=== PATIENT | female | born 1965 | race Caucasian/White ===

== ENCOUNTER → 2016-09-09 | Outpatient (REF) | payer OTHER ==
[2016-09-09 12:12] LABS: ALBUMIN 3.7 GM/DL (3.2-5.2); ALKALINE PHOSPHATASE 79 U/L (45-117); ALT/SGPT 39 U/L (12-78); ANION GAP 6 MEQ/L (8-16); AST/SGOT 27 U/L (15-37); BILIRUBIN,TOTAL 0.7 MG/DL (0.2-1.0); BLOOD UREA NITROGEN 14 MG/DL (7-18); CALCIUM LEVEL 8.9 MG/DL (8.5-10.1); CARBON DIOXIDE LEVEL 30 MEQ/L (21-32); CHLORIDE LEVEL 106 MEQ/L (98-107); CHOLESTEROL LEVEL 212 MG/DL (<200); CREATININE FOR GFR 0.72 MG/DL (0.55-1.02); GLOMERULAR FILTRATION RATE > 60.0 (>51); GLUCOSE, FASTING 102 MG/DL (70-105); POTASSIUM SERUM 4.3 MEQ/L (3.5-5.1); SODIUM LEVEL 142 MEQ/L (136-145); TOTAL PROTEIN 7.4 GM/DL (6.4-8.2); TRIGLYCERIDES LEVEL 65 MG/DL (<150)
[2016-09-09 12:31] LABS: MEAN CORPUSCULAR HEMOGLOBIN 27.8 pg (27.0-33.0); MEAN CORPUSCULAR HGB CONC 32.9 g/dl (32.0-36.5); MEAN CORPUSCULAR VOLUME 84.5 fl (80.0-96.0); RED CELL DISTRIBUTION WIDTH 13.7 % (11.5-14.5); WHITE BLOOD COUNT 8.1 K/mm3 (4.0-10.0)
== END ==
LOC: M SFHCLERA 08:07
PROVIDERS: ATTEND Physician Assistant
DX: I10 Essential (primary) hypertension (principal); Z13.220 Encounter for screening for lipoid disorders

== ENCOUNTER → 2017-11-25 | Outpatient (CLI) | payer OTHER | LOC: M LRY 14:15 | DX: R06.00 Dyspnea, unspecified (principal) | CPT/HCPCS: 71046 ==

== ENCOUNTER → 2018-03-28 | Outpatient (REF) | payer OTHER | LOC: M SFHCCLAY 16:18 | DX: I10 Essential (primary) hypertension (principal) ==

== ENCOUNTER → 2018-06-01 | Outpatient (REF) | payer OTHER ==
[2018-06-01 16:42] LABS: BLOOD UREA NITROGEN 14 MG/DL (7-18); CALCIUM LEVEL 8.8 MG/DL (8.5-10.1); CARBON DIOXIDE LEVEL 33 MEQ/L (21-32); CHLORIDE LEVEL 99 MEQ/L (98-107); CREATININE FOR GFR 0.82 MG/DL (0.55-1.30); GLOMERULAR FILTRATION RATE > 60.0 (>51); GLUCOSE, FASTING 143 MG/DL (70-100); POTASSIUM SERUM 3.3 MEQ/L (3.5-5.1); SODIUM LEVEL 139 MEQ/L (136-145)
== END ==
LOC: M SFHCCLAY 11:18
PROVIDERS: ATTEND Family Medicine
DX: I10 Essential (primary) hypertension (principal)

== ENCOUNTER → 2018-06-21 | Outpatient (REF) | payer OTHER ==
[2018-06-22 11:22] LABS: BLOOD UREA NITROGEN 19 MG/DL (7-18); CALCIUM LEVEL 9.2 MG/DL (8.5-10.1); CARBON DIOXIDE LEVEL 30 MEQ/L (21-32); CHLORIDE LEVEL 97 MEQ/L (98-107); CREATININE FOR GFR 0.86 MG/DL (0.55-1.30); GLOMERULAR FILTRATION RATE > 60.0 (>51); GLUCOSE, FASTING 170 MG/DL (70-100); POTASSIUM SERUM 3.3 MEQ/L (3.5-5.1); SODIUM LEVEL 138 MEQ/L (136-145)
== END ==
LOC: M SFHCCLAY 13:50
PROVIDERS: ATTEND Family Medicine
DX: E87.6 Hypokalemia (principal)

== ENCOUNTER → 2018-07-11 | Outpatient (REF) | payer OTHER ==
[2018-07-11 18:39] LABS: BLOOD UREA NITROGEN 18 MG/DL (7-18); CALCIUM LEVEL 9.2 MG/DL (8.5-10.1); CARBON DIOXIDE LEVEL 31 MEQ/L (21-32); CHLORIDE LEVEL 100 MEQ/L (98-107); CREATININE FOR GFR 0.96 MG/DL (0.55-1.30); GLOMERULAR FILTRATION RATE > 60.0 (>51); GLUCOSE, FASTING 147 MG/DL (70-100); POTASSIUM SERUM 3.2 MEQ/L (3.5-5.1); SODIUM LEVEL 139 MEQ/L (136-145)
== END ==
LOC: M SFHCCLAY 09:40
PROVIDERS: ATTEND Family Medicine
DX: I10 Essential (primary) hypertension (principal); E87.6 Hypokalemia

== ENCOUNTER → 2018-08-23 | Outpatient (REF) | payer OTHER ==
[2018-08-24 12:16] LABS: BLOOD UREA NITROGEN 14 MG/DL (7-18); CALCIUM LEVEL 8.8 MG/DL (8.5-10.1); CARBON DIOXIDE LEVEL 26 MEQ/L (21-32); CHLORIDE LEVEL 104 MEQ/L (98-107); CREATININE FOR GFR 0.72 MG/DL (0.55-1.30); GLOMERULAR FILTRATION RATE > 60.0 (>51); GLUCOSE, FASTING 113 MG/DL (70-100); MAGNESIUM LEVEL 1.9 MG/DL (1.8-2.4); POTASSIUM SERUM 3.9 MEQ/L (3.5-5.1); SODIUM LEVEL 138 MEQ/L (136-145)
== END ==
LOC: M SFHCCLAY 14:04
PROVIDERS: ATTEND Family Medicine
DX: I10 Essential (primary) hypertension (principal); R25.2 Cramp and spasm

== ENCOUNTER → 2018-11-21 | Outpatient (CLI) | payer BC ==
--- NOTE | 2018-11-21 15:26 | REP ---
CHEST, TWO VIEWS: Two views of the chest performed and compared to a prior study of 11/25/2017. There is dense pneumonic infiltrate in the right middle lobe. The left lung is clear. The heart is normal in size. Mediastinal silhouette is unremarkable. Visualized osseous structures are unremarkable. IMPRESSION: Dense pneumonic infiltrate right middle lobe. Recommend followup to resolution.
== END ==
LOC: M CLY 14:42
PROVIDERS: ATTEND Family Medicine
DX: R91.8 Other nonspecific abnormal finding of lung field (principal)

== ENCOUNTER → 2018-12-11 | Outpatient (CLI) | payer BC, OTHER ==
[~2018-12-11] MED LIST: METHACHOLINE KIT (J7674) INH ONE
--- NOTE | 2018-12-11 11:26 | PFTRPT ---
Height: 68.00 Inches Weight: 198.00 Lbs BSA: 2.04 Diagnosis: R05 DATE OF PROCEDURE: 12/11/2018 ORDERED BY: Rosa Marina INTERPRETATION: Study of excellent technical quality. Under protocol, methacholine was administered. At a dose of 0.25 mg or 1.375 CDUs, a 28% decline in the FEV1 was noted. PC of 0.13 is significant. Flow rates did return to baseline post bronchodilator administration. IMPRESSION: Positive methacholine challenge study. MTDD
== END ==
LOC: M CARPUL 10:32
PROVIDERS: ATTEND Nurse Practitioner Family
DX: R05 Cough (principal); R06.00 Dyspnea, unspecified
CPT/HCPCS: 94070; J7674

== ENCOUNTER → 2019-01-03 | Outpatient (REF) ==
[2019-01-03 14:16] LABS: BASO # 0.2 10^3/uL (0.0-0.2); BASO % 1.7 % (0.0-1.0); HEMATOCRIT 46.9 % (36.0-47.0); HEMOGLOBIN 15.2 g/dl (12.0-15.5); LYMPH # 3.7 10^3/uL (1.5-4.5); LYMPH % 39.7 % (24.0-44.0); MEAN CORPUSCULAR HEMOGLOBIN 27.3 pg (27.0-33.0); MEAN CORPUSCULAR HGB CONC 32.4 g/dl (32.0-36.5); MEAN CORPUSCULAR VOLUME 84.4 fl (80.0-96.0); MONO # 0.6 10^3/uL (0.0-0.8); MONO % 6.6 % (0.0-5.0); NEUTROPHILS # 4.9 10^3/uL (1.8-7.7); NEUTROPHILS % 51.8 % (36.0-66.0); PLATELET COUNT, AUTOMATED 305 10^3/uL (150-450); RED BLOOD COUNT 5.56 10^6/uL (4.00-5.40); WHITE BLOOD COUNT 9.4 10^3/uL (4.0-10.0)
== END ==
LOC: M LABSMT 13:19
PROVIDERS: ATTEND Allergy & Immunology Allergy
DX: J45.40 Moderate persistent asthma, uncomplicated (principal)

== ENCOUNTER → 2019-01-18 | Outpatient (CLI) | payer BC, OTHER ==
--- NOTE | 2019-01-19 09:38 | REP ---
CT of the maxillofacial bones without contrast: Clinical indication: Polyp of nasal cavity. Comparison: None. Technique: CT of maxillofacial bones was performed without contrast. Bone reformatted images were obtained in the axial coronal planes. Findings: There is complete opacification of the right and left frontal sinuses, right and left frontoethmoid recesses, right and left anterior and posterior ethmoid air cells with bowing of the lateral burrows of the ethmoid air cells. There is near complete opacification of the right sphenoid sinus with central aeration. There is mucosal thickening of the left sphenoid sinus. The sphenoid septum inserts centrally within the midline. The cribriform plate is intact. The (cut off) canals are clear. There is near complete opacification of the right maxillary sinus with mucosal thickening throughout the right ostiomeatal unit. There is partial opacification of the left maxillary sinus with mucosal thickening involving the ostiomeatal unit on the left. There is rightward deviation of the nasal septum. The mastoid air cells are clear. The sphenoid ethmoid recesses are opacified. The imaged portion of the head is unremarkable. The orbits are intact. Impression: 1. Complete opacification of the right frontal ethmoid sinuses with bowing of the lateral burrows of the ethmoid air cells. Near complete opacification of the sphenoid and partial opacification of the maxillary sinuses with mucosal thickening of the ostiomeatal units bilaterally. 2. Rightward deviation of the nasal septum. Unreviewed
== END ==
LOC: M RAD 16:13
PROVIDERS: ATTEND Otolaryngology
DX: J33.0 Polyp of nasal cavity (principal); J34.2 Deviated nasal septum; J32.2 Chronic ethmoidal sinusitis; J32.3 Chronic sphenoidal sinusitis; J32.0 Chronic maxillary sinusitis

== ENCOUNTER → 2019-02-02 | Outpatient (CLI) | payer BC, OTHER ==
[~2019-02-02] MED LIST changes: +AMLO5TAB6 PO; +CETI10CA13 PO; +FLUTISP; -METHACHOLINE KIT (J7674) INH ONE; +SYMB16INH INH
--- NOTE | 2019-02-02 10:55 | REP ---
Right wrist four views: Mineralization and joint spaces are normal. There is no fracture or dislocation. There is soft tissue edema over the dorsum. There are no calcifications or foreign bodies. Impression: Soft tissue edema. No fracture. Electronically Signed by Danie Dowell MD 02/02/2019 10:47 A
== END ==
LOC: M LRY 10:19
PROVIDERS: ATTEND Physician Assistant
DX: M25.431 Effusion, right wrist (principal)

== ENCOUNTER → 2019-02-02 | Outpatient (REF) | payer OTHER ==
[2019-02-02 16:41] LABS: RHEUMATOID FACTOR QUANT < 10.0 IU/ML (<15.0); URIC ACID 3.7 MG/DL (2.6-6.0)
[2019-02-02 16:45] LABS: BASO # 0.1 10^3/uL (0.0-0.2); HEMOGLOBIN 14.7 g/dl (12.0-15.5); LYMPH # 2.2 10^3/uL (1.5-4.5); LYMPH % 23.4 % (24.0-44.0); MEAN CORPUSCULAR HEMOGLOBIN 27.6 pg (27.0-33.0); MEAN CORPUSCULAR VOLUME 86.5 fl (80.0-96.0); MONO # 0.6 10^3/uL (0.0-0.8); MONO % 6.4 % (0.0-5.0); NEUTROPHILS # 6.6 10^3/uL (1.8-7.7); PLATELET COUNT, AUTOMATED 292 10^3/uL (150-450); RED BLOOD COUNT 5.32 10^6/uL (4.00-5.40); WHITE BLOOD COUNT 9.6 10^3/uL (4.0-10.0)
[2019-02-02 18:42] LABS: ERYTHROCYTE SEDIMENTATION RATE 10 mm/hr (0-30)
[2019-02-07 00:06] LABS: ANTINUCLEAR ANTIBODIES DIRECT Negative (Negative); Lyme Disease IgG/IgM Antibodie <0.91 ISR (0.00-0.90); Lyme Disease IgM Ab Quantitati <0.80 index (0.00-0.79)
== END ==
LOC: M SFHCLERA 10:17
PROVIDERS: ATTEND Physician Assistant
DX: M25.531 Pain in right wrist (principal)

== ENCOUNTER 2019-03-02 12:08 | Day surgery (SDC) | payer BC, OTHER ==
[~2019-03-02] VITALS: Ht 172.7 cm; Wt 89.8 kg
[~2019-03-02 12:08] MED LIST changes: +NS 1,000 ML IV ONE
[2019-03-02] MEDS ORDERED: PROPOFOL 500 MG/50 ML VIAL As Ordered ONE (13:14)
[2019-03-02] MEDS ORDERED: fentaNYL 100 MCG/2 ML INJECTION (J3010) As Ordered ONE (13:14)
[2019-03-02] MEDS ORDERED: LIDOCAINE 2% INJ 100 MG/5 ML SDV (FOR ANES.) As Ordered ONE (13:14)
--- NOTE | 2019-03-02 13:20 | ROOR ---
Patient Name: Abeba Nieves Procedure Date: 03/02/2019 1:00 PM Date of : 1965 Age: 54 Room: [facility] Gender: Female Note Status: Finalized Procedure: Upper GI endoscopy Indications: Suspected esophageal reflux, Chronic cough Providers: Elroy LEAL MD Referring MD: Cathleen PATRICK DO Requesting Provider: Medicines: Monitored Anesthesia Care Complications: No immediate complications. Procedure: Pre-Anesthesia Assessment: - The heart rate, respiratory rate, oxygen saturations, blood pressure, adequacy of pulmonary ventilation, and response to care were monitored throughout the procedure. The Endoscope was introduced through the mouth, and advanced to the second part of duodenum. The upper GI endoscopy was accomplished without difficulty. The patient tolerated the procedure well. Findings: The esophagus was normal. The stomach was normal. The examined duodenum was normal. The AMADOR capsule with delivery system was introduced through the mouth and advanced into the esophagus, such that the AMADOR pH capsule was positioned 36 cm from the incisors, which was 6 cm proximal to the GE junction. The AMADOR pH capsule was then deployed and attached to the esophageal mucosa. The delivery system was then withdrawn. Endoscopy was utilized for probe placement and diagnostic evaluation. Impression: - Normal esophagus. - Normal stomach. - Normal examined duodenum. - The AMADOR pH capsule was deployed. - No specimens collected. Recommendation: - Amador pH testing: OFF PPI meds. - Telephone my office for study results in 2 weeks. Elroy Leal MD Elroy LEAL MD 03/02/2019 1:20:17 PM Electronically signed by Elroy LEAL MD Number of Addenda: 0 Note Initiated On: 03/02/2019 1:00 PM Estimated Blood Loss: Estimated blood loss: none.
[2019-03-02 13:40] VITALS: BP 129/94
== END 2019-03-02 13:55 | disposition home or self-care (01) ==
LOC: M OPP 12:08
PROVIDERS: ATTEND Internal Medicine Gastroenterology
DX: R05 Cough (principal); J45.909 Unspecified asthma, uncomplicated; Z88.0 Allergy status to penicillin; Z88.6 Allergy status to analgesic agent
CPT/HCPCS: 43235; 91035; J3010

== ENCOUNTER → 2019-03-05 | Outpatient (REF) | payer OTHER ==
[~2019-03-05] MED LIST changes: -NS 1,000 ML IV ONE
[2019-03-05 16:57] LABS: ALBUMIN 3.8 GM/DL (3.2-5.2); ALT/SGPT 24 U/L (12-78); BILIRUBIN,TOTAL 0.8 MG/DL (0.2-1.0); BLOOD UREA NITROGEN 11 MG/DL (7-18); CALCIUM LEVEL 9.2 MG/DL (8.5-10.1); CARBON DIOXIDE LEVEL 29 MEQ/L (21-32); CHLORIDE LEVEL 105 MEQ/L (98-107); CHOLESTEROL LEVEL 197 MG/DL (<200); CHOLESTEROL RISK RATIO 2.855 (<5); CREATININE FOR GFR 0.74 MG/DL (0.55-1.30); GLOMERULAR FILTRATION RATE > 60.0 (>51); GLUCOSE, FASTING 99 MG/DL (70-100); HDL CHOLESTEROL 69 MG/DL (>40); LDL CHOLESTEROL 111 MG/DL (<100); NON-HDL-C 128 MG/DL; SODIUM LEVEL 140 MEQ/L (136-145); TOTAL PROTEIN 7.5 GM/DL (6.4-8.2); TRIGLYCERIDES LEVEL 87 MG/DL (<150)
== END ==
LOC: M SFHCCLAY 09:48
PROVIDERS: ATTEND Family Medicine
DX: Z00.00 Encounter for general adult medical examination without abnormal findings (principal); Z83.3 Family history of diabetes mellitus; Z13.1 Encounter for screening for diabetes mellitus; Z13.220 Encounter for screening for lipoid disorders

== ENCOUNTER → 2019-05-07 | Outpatient (CLI) | payer OTHER ==
--- NOTE | 2019-05-07 12:11 | REP ---
Clinical: Cough and shortness of breath . Comparison: 11/21/2018 . Technique: PA and lateral. Findings: The mediastinum and cardiac silhouette are normal. The lung simon are clear and without acute consolidation, effusion, or pneumothorax. The skeletal structures are intact and normal. Impression: 1. No acute cardiopulmonary process. Electronically Signed by Andres Gonzalez MD 05/07/2019 12:02 P
== END ==
LOC: M CLY 11:28 → M LRY 11:28
PROVIDERS: ATTEND Family Medicine
DX: R05 Cough (principal); R06.02 Shortness of breath

== ENCOUNTER → 2019-06-15 | Outpatient (CLI) | payer BC, OTHER ==
--- NOTE | 2019-06-15 11:49 | REP ---
CHEST, TWO VIEWS: There is no evidence of acute infiltrate. No pleural effusion is seen. The heart is normal in size. The mediastinal silhouette is unremarkable. The visualized osseous structures are intact. There are mild degenerative changes of the spine. IMPRESSION: No acute pulmonary disease. Electronically Signed by Danie Pat MD 06/16/2019 03:15 P
== END ==
LOC: M LRY 10:25
PROVIDERS: ATTEND Nurse Practitioner Family
DX: J45.41 Moderate persistent asthma with (acute) exacerbation (principal)

== ENCOUNTER → 2019-07-09 | Outpatient (REF) | payer OTHER ==
[2019-07-10 12:46] LABS: BASO # 0.1 10^3/uL (0.0-0.2); BASO % 1.9 % (0.0-1.0); EOS % 0.3 % (0.0-3.0); HEMATOCRIT 43.6 % (36.0-47.0); HEMOGLOBIN 13.8 g/dl (12.0-15.5); LYMPH # 2.2 10^3/uL (1.5-5.0); LYMPH % 32.6 % (24.0-44.0); MEAN CORPUSCULAR HEMOGLOBIN 26.7 pg (27.0-33.0); MEAN CORPUSCULAR HGB CONC 31.7 g/dl (32.0-36.5); MEAN CORPUSCULAR VOLUME 84.5 fl (80.0-96.0); MONO # 0.8 10^3/uL (0.0-0.8); MONO % 11.8 % (0.0-5.0); NEUTROPHILS # 3.7 10^3/uL (1.5-8.5); NEUTROPHILS % 53.1 % (36.0-66.0); PLATELET COUNT, AUTOMATED 442 10^3/uL (150-450); RED BLOOD COUNT 5.16 10^6/uL (4.00-5.40); WHITE BLOOD COUNT 6.9 10^3/uL (4.0-10.0)
== END ==
LOC: M SFHCCLAY 15:50
PROVIDERS: ATTEND Family Medicine
DX: R53.83 Other fatigue (principal)

== ENCOUNTER → 2020-01-24 | Outpatient (CLI) | payer BC, OTHER ==
[~2020-01-24] MED LIST changes: +ALLE180T33 PO; +AMLO1TAB24 PO; -AMLO5TAB6 PO; +CHLO25TA PO; +CLIN150C14 PO; +DULE200A INH; +PRED5TA; +PROAAER10 INH; +SING10TA32 PO
--- NOTE | 2020-01-24 15:46 | REPVR ---
PROCEDURE INFORMATION: Exam: CT Maxillofacial Without Contrast, Sinus Exam date and time: 01/24/2020 3:21 PM Age: 54 years old Clinical indication: Other: Chronic pansinusitis, polyp of nasal cavity; Additional info: J33.0 polyp of nasal cavity j32.4 chronic pansinus TECHNIQUE: Imaging protocol: CT Maxillofacial without contrast. Focus on the sinuses. Radiation optimization: All CT scans at this facility use at least one of these dose optimization techniques: automated exposure control; mA and/or kV adjustment per patient size (includes targeted exams where dose is matched to clinical indication); or iterative reconstruction. COMPARISON: CT Maxilofacial w/out contrast 01/18/2019 4:31 PM FINDINGS: Frontal sinuses: There is mild mucosal thickening in bilateral frontal sinuses, significantly improved since the previous study. Ethmoid air cells: There is moderate mucosal thickening in bilateral ethmoid sinuses, significantly improved since the previous study. Sphenoid sinuses: There is mild mucosal thickening in bilateral sphenoid sinuses, improved since the previous study. Maxillary sinuses: There is moderate mucosal thickening in the right maxillary sinus, unchanged since the previous study. There is moderate mucosal thickening in the left maxillary sinus improved since the previous study. There is a polypoid mucosal thickening along the medial wall of the left maxillary sinus. Orbits: Examination reveals bilateral globes to be normal in size and morphology. The optic nerves are normal in thickness and symmetric bilaterally. The extraocular muscles are normal in thickness and signal intensity. The retroconal fat has a normal appearance. The lacrimal glands appear normal bilaterally. Mastoid air cells: The visualized mastoid air cells are clear. Nasal cavity/Septum: There is mild deviation of the nasal septum towards the right. There is marked mucosal obstruction of bilateral ostiomeatal complex. Dental: Metallic beam hardening artifact from dental hardware limits evaluation in this region. Brain: The visualized brain parenchyma is unremarkable. Soft tissues: Unremarkable. Bones/joints: The bony orbital burrows are intact. No fractures are identified. The visualized osseous structures are unremarkable. No acute fracture or dislocation is seen. IMPRESSION: 1. There is mild mucosal thickening in bilateral frontal sinuses, significantly improved since the previous study. 2. There is moderate mucosal thickening in bilateral ethmoid sinuses, significantly improved since the previous study. 3. There is mild mucosal thickening in bilateral sphenoid sinuses, improved since the previous study. 4. There is moderate mucosal thickening in the right maxillary sinus, unchanged since the previous study. There is moderate mucosal thickening in the left maxillary sinus improved since the previous study. There is a polypoid mucosal thickening along the medial wall of the left maxillary sinus. 5. There is mild deviation of the nasal septum towards the right. There is marked mucosal obstruction of bilateral ostiomeatal complex. Electronically signed by: Melecio Townsend On 01/24/2020 15:46:06 PM
== END ==
LOC: M RAD 15:06
PROVIDERS: ATTEND Otolaryngology
DX: J34.2 Deviated nasal septum (principal); J33.0 Polyp of nasal cavity; J32.4 Chronic pansinusitis

== ENCOUNTER → 2020-02-15 | Outpatient (CLI) | payer BC, OTHER ==
--- NOTE | 2020-02-18 15:05 | ECHO ---
DATE OF PROCEDURE: 02/15/2020 Age: 54 REFERRING PROVIDER: Cathleen Guevara DO PATIENT LOCATION: Outpatient. REASON FOR STUDY: Heart murmur. MEASUREMENTS: IVS 0.9 cm LV 4.9 cm LVPW 0.8 cm LA 2.7 cm Aortic root 2.4 cm Ascending aorta 2.8 cm IVC 1.3 cm DOPPLER MEASUREMENT Peak velocity across the aortic valve 1.5 mm/s Peak velocity across the LVOT 0.9 mm/s Peak gradient across the aortic valve 9 mmHg Mean gradient across the aortic valve 5 mmHg Mitral E 0.8 Mitral A 0.9 with a ratio of 0.8 2D COMMENTS: 1. Normal left ventricular size, wall thickness, and normal global left ventricular systolic function. The estimated left ventricular systolic ejection fraction is 60% to 65%. 2. Normal left atrium. Normal right atrium and right ventricle. 3. The atrial septum appeared to be normal without evidence of defect or shunt. Normal aortic root. 4. No pericardial effusion seen. 5. Mildly calcified aortic valve with overall normal leaflet excursion. Normal mitral valve, tricuspid valve, and pulmonic valve. The proximal pulmonary artery branches were not well visualized. 6. The inferior vena cava was normal in size. Central venous pressure is most likely normal. 7. Doppler detects trace mitral regurgitation. Abnormal relaxation pattern was noted across the mitral valve leaflets, as well as the mitral valve annulus consistent with features of grade 1 left ventricular diastolic dysfunction. IMPRESSION: 1. Normal global left ventricular systolic function. There are some features of left ventricular diastolic dysfunction manifested by abnormal relaxation. 2. Aortic valve sclerosis with trivial aortic stenosis. There was no aortic regurgitation. 3. Trace mitral regurgitation. MTDD
== END ==
LOC: M CARPUL 10:16
PROVIDERS: ATTEND Family Medicine
DX: R01.1 Cardiac murmur, unspecified (principal)

== ENCOUNTER → 2020-04-01 | Outpatient (CLI) | payer BC, OTHER ==
--- NOTE | 2020-04-01 15:18 | REPMRS ---
Patient History The patient states she had a clinical breast exam in March 2020.No known family history of cancer. Benign excisional biopsy of the right breast, 1988. 3D TOMOSYNTHESIS WAS PERFORMED. [facility]%. [place] breast density a. Digital Woman Screen Mammo: April 01, 2020 - Exam #: [id number] Bilateral CC and MLO view(s) were taken. Technologist: Jerica Lopez, Technologist Prior study comparison: August 19, 2014, digital woman screen mammo performed at [facility]. August 17, 2013, digital woman screen mammo performed at [facility]. FINDINGS: There are scattered fibroglandular densities. There has been no change in the appearance of the mammogram from the prior studies. There is a mild amount of residual fibroglandular tissue which is fairly symmetric. There is no interval development of dominant mass, architectural distortion, or clustered microcalcification suggestive of malignancy. Assessment: BI-RADS/ACR category 1 mammogram. Negative Mammogram. Recommendation Routine screening mammogram in 1 year (for women over age 40). This mammogram was interpreted with the aid of an FDA-approved computer-aided dectection system. Electronically Signed By: Danie Pat MD 04/01/20 [id number]
== END ==
LOC: M WHC 12:20
PROVIDERS: ATTEND Nurse Practitioner Family
DX: Z12.31 Encounter for screening mammogram for malignant neoplasm of breast (principal)

== ENCOUNTER → 2020-04-18 | Outpatient (CLI) | payer SELFPAY | LOC: M LABSMTC 14:38 | PROVIDERS: ATTEND Pediatrics | DX: Z20.828 Contact with and (suspected) exposure to other viral communicable diseases (principal) ==

== ENCOUNTER → 2020-06-19 | Outpatient (CLI) | payer SELFPAY ==
[~2020-06-19] MED LIST changes: -CLIN150C14 PO; +CLIN150C15 PO
== END ==
LOC: M LABSMTC 10:37
PROVIDERS: ATTEND Anesthesiology
DX: Z01.812 Encounter for preprocedural laboratory examination (principal); Z20.822 Contact with and (suspected) exposure to COVID-19

== ENCOUNTER 2020-06-24 08:41 | Day surgery (SDC) | payer BC, OTHER ==
[~2020-06-24] VITALS: Ht 172.7 cm; Wt 93.0 kg
[~2020-06-24 08:41] MED LIST changes: +PRED20TA PO; +SPIR1AER INH
[2020-06-24] MEDS ORDERED: LR 1,000 ML IV ONE (09:45)
[2020-06-24] MEDS ORDERED: propofoL 200 MG/20 ML VIAL As Ordered ONE (10:08)
[2020-06-24] MEDS ORDERED: ROCURONIUM BROMIDE 50 MG/5 ML VIAL As Ordered ONE (10:08)
[2020-06-24] MEDS ORDERED: dexameTHASONE 4 MG/ML 1ML VIAL (J1100 PER 1MG) As Ordered ONE (10:08)
[2020-06-24] MEDS ORDERED: LIDOCAINE 2% 100MG/5ML SDV (FOR ANES.) As Ordered ONE (10:08)
[2020-06-24] MEDS ORDERED: ONDANSETRON 4MG/2ML VIAL As Ordered ONE (10:08)
[2020-06-24] MEDS ORDERED: LACRILUBE (AKWA TEARS) OPHTH OINT 3.5 GM As Ordered ONE (10:08)
[2020-06-24] MEDS ORDERED: MIDAZOLAM INJ 2MG/2ML VIAL (J2250 PER 1MG) As Ordered ONE (10:11)
[2020-06-24] MEDS ORDERED: fentaNYL 100 MCG/2 ML INJECTION (J3010) As Ordered ONE ×2 (10:11→11:48)
[2020-06-24] MEDS ORDERED: METHYLENE BLUE 0.5% (5MG/ML) 10 ML AMP (PROVAYBLUE) As Ordered ONE (10:51)
[2020-06-24] MEDS ORDERED: EPINEPHrine 1MG/ML INJ 30ML MD-VIAL As Ordered ONE (10:51)
[2020-06-24] MEDS ORDERED: LIDOCAINE W/EPINEPHRINE 1% 20ML VIAL As Ordered ONE (10:51)
--- NOTE | 2020-06-24 11:09 | ECGEPIP ---
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
[2020-06-24] MEDS ORDERED: LABETALOL 100MG/20ML VIAL As Ordered ONE (11:36)
[2020-06-24] MEDS ORDERED: PHENYLephrine 500MCG 5ML (100MCG/ML) SYRINGE As Ordered ONE (12:28)
[2020-06-24] MEDS ORDERED: ONDANSETRON 4MG/2ML VIAL IV PRN (13:30)
[2020-06-24] MEDS ORDERED: oxyCODONE 5MG TAB PO PRN (13:30)
[2020-06-24] MEDS ORDERED: fentaNYL 100 MCG/2 ML INJECTION (J3010) IV PRN (13:30)
[2020-06-24] MEDS ORDERED: MEPERIDINE INJ 25 MG/ML VIAL (J2175) IV PRN (13:30)
[2020-06-24] MEDS ORDERED: ACETAMINOPH W/CODEINE #3 TAB UD PO PRN (13:30)
[2020-06-24] MEDS ORDERED: LR 1,000 ML IV SCH ×2 (13:30→13:45)
[2020-06-24] MEDS ORDERED: METOCLOPRAMIDE INJ 10MG/2ML VIAL (J2765 PER 1) IV PRN (13:30)
--- NOTE | 2020-06-24 15:42 | RO ---
OPERATIVE NOTE DATE OF OPERATION: 06/24/2020 PREOPERATIVE DIAGNOSIS: Chronic rhinosinusitis. POSTOPERATIVE DIAGNOSIS: Chronic rhinosinusitis. PROCEDURE: Bilateral polypectomies, antrostomies, ethmoidectomies, nasofrontal sinusotomies. SURGEON: Jeff Parekh MD LARRIMAN HELPER: ANESTHESIA: FINDINGS: There is polypoid tissue throughout the sinuses. I did use the navigation system during the procedure as well as endoscopy and micro debrider. DESCRIPTION OF PROCEDURE: I started first on the right side. I used pledgets of Adrenalin 1:1000 and infiltrated with Lidocaine with Epinephrine. I removed polyps from the inside of the nose on the right side and then went between the middle turbinate and lateral nasal wall. I then opened the ethmoid sinus area and then went from posterior to anterior. I then dissected the nasofrontal area. I then opened the right maxillary sinus which is filled with mucopurulent material. The same procedure was performed on the opposite side except there was no pus within the sinus on the left side. The patient tolerated the procedure well. Approximately 100 mL estimated blood loss. I did put Propel implants in the osteomeatal complex area on both sides. The patient was extubated and transferred to recovery room in excellent condition.
[2020-06-24 15:51] VITALS: BP 132/66
== END 2020-06-24 16:55 | disposition home or self-care (01) ==
LOC: M SDC 08:41
PROVIDERS: ATTEND Otolaryngology
DX: J32.9 Chronic sinusitis, unspecified (principal); J30.81 Allergic rhinitis due to animal (cat) (dog) hair and dander; J45.909 Unspecified asthma, uncomplicated; I10 Essential (primary) hypertension; K58.8 Other irritable bowel syndrome; Z79.51 Long term (current) use of inhaled steroids; Z79.52 Long term (current) use of systemic steroids; Z79.899 Other long term (current) drug therapy; Z88.0 Allergy status to penicillin; Z88.8 Allergy status to other drugs, medicaments and biological substances
CPT/HCPCS: 31267; 31276; 31287; 88305; 93005; C2625; J1100; J2250; J2370; J2405; J3010; Q9968

== ENCOUNTER → 2020-08-25 | Outpatient (CLI) | payer BC, OTHER ==
[2020-08-25 17:02] LABS: BLOOD UREA NITROGEN 14 MG/DL (7-18); CALCIUM LEVEL 9.4 MG/DL (8.5-10.1); CARBON DIOXIDE LEVEL 30 MEQ/L (21-32); CHLORIDE LEVEL 101 MEQ/L (98-107); CREATININE FOR GFR 0.82 MG/DL (0.55-1.30); GLOMERULAR FILTRATION RATE > 60.0 (>51); GLUCOSE, FASTING 122 MG/DL (70-100); POTASSIUM SERUM 3.1 MEQ/L (3.5-5.1); SODIUM LEVEL 139 MEQ/L (136-145)
== END ==
LOC: M WUC 13:24
PROVIDERS: ATTEND Family Medicine
DX: I11.9 Hypertensive heart disease without heart failure (principal)

== ENCOUNTER → 2020-08-25 | Outpatient (CLI) | payer BC, OTHER ==
--- NOTE | 2020-08-25 15:03 | REP ---
INDICATION: SEVERE PERSISTENT ASTHMA. COMPARISON: Comparison chest x-ray 15 June 2019. TECHNIQUE: Two views.. FINDINGS: The lungs are well inflated and free of infiltrate. The pleural angles are sharp. The heart size is normal. Pulmonary vasculature is not increased. No significant bony abnormality is seen. IMPRESSION: Negative chest x-ray. <Electronically signed by Byron Orosco > 08/25/20 1500
[2020-08-25 16:39] LABS: BASO # 0.2 10^3/uL (0.0-0.2); BASO % 1.9 % (0.0-1.0); EOS % 0.1 % (0.0-3.0); HEMATOCRIT 45.2 % (36.0-47.0); HEMOGLOBIN 14.8 g/dl (12.0-15.5); LYMPH # 2.7 10^3/uL (1.5-5.0); LYMPH % 33.5 % (24.0-44.0); MEAN CORPUSCULAR HEMOGLOBIN 27.7 pg (27.0-33.0); MEAN CORPUSCULAR HGB CONC 32.7 g/dl (32.0-36.5); MEAN CORPUSCULAR VOLUME 84.5 fl (80.0-96.0); MONO # 0.5 10^3/uL (0.0-0.8); MONO % 6.7 % (2.0-8.0); NEUTROPHILS # 4.6 10^3/uL (1.5-8.5); NEUTROPHILS % 57.5 % (36.0-66.0); PLATELET COUNT, AUTOMATED 337 10^3/uL (150-450); RED BLOOD COUNT 5.35 10^6/uL (4.00-5.40); WHITE BLOOD COUNT 7.9 10^3/uL (4.0-10.0)
== END ==
LOC: M WUC 13:20
PROVIDERS: ATTEND Allergy & Immunology Allergy
DX: J45.50 Severe persistent asthma, uncomplicated (principal)

== ENCOUNTER → 2020-09-03 | Outpatient (CLI) | payer BC, OTHER ==
[2020-09-03 20:11] LABS: CPK CREATINE PHOSPHOKINASE 85 U/L (26-192); FOLATE > 24.0 NG/ML; FREE T4 1.17 NG/DL (0.76-1.46); FREE THYROXINE INDEX 3.8 % (1.3-4.8); T UPTAKE 34 % (30-39); THYROXINE (T4) 11.3 UG/DL (4.5-12.0); VITAMIN B12 LEVEL 996 PG/ML
== END ==
LOC: M WUC 15:27
PROVIDERS: ATTEND Psychiatry & Neurology Neurology
DX: R25.1 Tremor, unspecified (principal); R53.1 Weakness; E07.9 Disorder of thyroid, unspecified

== ENCOUNTER → 2021-06-08 | Outpatient (CLI) | payer BC, OTHER ==
[~2021-06-08] MED LIST changes: +ALLERGY SHOT SC; +BREO1INH3 INH; -CLIN150C15 PO; +CLIN150C17 PO; +XOLA150I SC
== END ==
LOC: M LABSMTC 12:12
PROVIDERS: ATTEND Anesthesiology
DX: Z01.818 Encounter for other preprocedural examination (principal); Z11.52 Encounter for screening for COVID-19

== ENCOUNTER → 2021-06-17 | Outpatient (CLI) | payer BC, OTHER | LOC: M WHC 14:16 | PROVIDERS: ATTEND Nurse Practitioner Women's Health | DX: Z12.31 Encounter for screening mammogram for malignant neoplasm of breast (principal) ==

== ENCOUNTER → 2021-07-03 | Outpatient (REF) | payer OTHER ==
[2021-07-03 16:21] LABS: BLOOD UREA NITROGEN 17 MG/DL (7-18); CALCIUM LEVEL 9.5 MG/DL (8.5-10.1); CARBON DIOXIDE LEVEL 33 MEQ/L (21-32); CHLORIDE LEVEL 102 MEQ/L (98-107); CREATININE FOR GFR 0.82 MG/DL (0.55-1.30); GLOMERULAR FILTRATION RATE > 60.0 (>51); GLUCOSE, FASTING 124 MG/DL (70-100); POTASSIUM SERUM 3.6 MEQ/L (3.5-5.1); SODIUM LEVEL 141 MEQ/L (136-145)
== END ==
LOC: M SFHCCLAY 10:49
PROVIDERS: ATTEND Family Medicine
DX: I11.9 Hypertensive heart disease without heart failure (principal)

== ENCOUNTER → 2021-08-20 | Outpatient (REF) | payer OTHER ==
[2021-08-20 17:05] LABS: BLOOD UREA NITROGEN 15 MG/DL (7-18); CALCIUM LEVEL 9.8 MG/DL (8.5-10.1); CARBON DIOXIDE LEVEL 32 MEQ/L (21-32); CHLORIDE LEVEL 100 MEQ/L (98-107); CREATININE FOR GFR 0.89 MG/DL (0.55-1.30); GLOMERULAR FILTRATION RATE > 60.0 (>51); GLUCOSE, FASTING 123 MG/DL (70-100); POTASSIUM SERUM 3.5 MEQ/L (3.5-5.1); SODIUM LEVEL 138 MEQ/L (136-145)
== END ==
LOC: M SFHCCLAY 10:49
PROVIDERS: ATTEND Family Medicine
DX: I11.9 Hypertensive heart disease without heart failure (principal)

== ENCOUNTER → 2021-12-30 | Outpatient (REF) | payer OTHER ==
[2021-12-30 12:26] LABS: ALBUMIN 3.5 GM/DL (3.2-5.2); ALT/SGPT 37 U/L (12-78); BLOOD UREA NITROGEN 14 MG/DL (7-18); CALCIUM LEVEL 9.4 MG/DL (8.5-10.1); CARBON DIOXIDE LEVEL 33 MEQ/L (21-32); CHLORIDE LEVEL 101 MEQ/L (98-107); CHOLESTEROL LEVEL 199 MG/DL (<200); CHOLESTEROL RISK RATIO 3.262 (<5); CREATININE FOR GFR 0.79 MG/DL (0.55-1.30); GLOMERULAR FILTRATION RATE > 60.0 (>51); GLUCOSE, FASTING 145 MG/DL (70-100); HDL CHOLESTEROL 61 MG/DL (>40); LDL CHOLESTEROL 123 MG/DL (<100); NON-HDL-C 138 MG/DL; POTASSIUM SERUM 3.3 MEQ/L (3.5-5.1); SODIUM LEVEL 138 MEQ/L (136-145); TOTAL PROTEIN 7.4 GM/DL (6.4-8.2); TRIGLYCERIDES LEVEL 75 MG/DL (<150)
== END ==
LOC: M SFHCCLAY 08:21
PROVIDERS: ATTEND Family Medicine
DX: Z00.00 Encounter for general adult medical examination without abnormal findings (principal); I11.0 Hypertensive heart disease with heart failure; I50.32 Chronic diastolic (congestive) heart failure; Z13.220 Encounter for screening for lipoid disorders; Z13.1 Encounter for screening for diabetes mellitus

== ENCOUNTER → 2022-01-18 | Outpatient (REF) | payer OTHER ==
[2022-01-18 14:52] LABS: HEMOGLOBIN A1c 6.6 %
== END ==
LOC: M SFHCCLAY 10:45
PROVIDERS: ATTEND Nurse Practitioner Family
DX: R73.01 Impaired fasting glucose (principal)

== ENCOUNTER → 2022-05-11 | Outpatient (CLI) | payer BC ==
[~2022-05-11] MED LIST changes: -DULE200A INH; +MOME13HF7 INH
== END ==
LOC: M CLY 14:27
PROVIDERS: ATTEND Physician Assistant
DX: R05.1 Acute cough (principal)

== ENCOUNTER → 2022-05-11 | Outpatient (REF) | payer OTHER | LOC: M SFHCCLAY 14:32 | PROVIDERS: ATTEND Physician Assistant | DX: R05.1 Acute cough (principal) ==

== ENCOUNTER → 2022-05-18 | Outpatient (REF) | payer OTHER ==
[2022-05-18 11:57] LABS: HEMOGLOBIN 14.5 g/dl (12.0-15.5); MEAN CORPUSCULAR VOLUME 81.8 fl (80.0-96.0); PLATELET COUNT, AUTOMATED 329 10^3/uL (150-450); RED BLOOD COUNT 5.38 10^6/uL (4.00-5.40); WHITE BLOOD COUNT 6.2 10^3/uL (4.0-10.0)
[2022-05-18 12:29] LABS: ALBUMIN 3.5 G/DL (3.2-5.2); ALKALINE PHOSPHATASE 71 U/L (46-116); ALT/SGPT 34 U/L (7.0-40); AST/SGOT 28 U/L (<34); BILIRUBIN,TOTAL 0.7 MG/DL (0.3-1.2); BLOOD UREA NITROGEN 17 MG/DL (9-23); CARBON DIOXIDE LEVEL 34 MMOL/L (20-31); CHLORIDE LEVEL 100 MMOL/L (98-107); CREATININE FOR GFR 0.72 MG/DL (0.55-1.30); GLOMERULAR FILTRATION RATE > 60.0 (>51); GLUCOSE, FASTING 140 MG/DL (60-100); POTASSIUM SERUM 3.5 MMOL/L (3.5-5.1); SODIUM LEVEL 140 MMOL/L (136-145); TOTAL PROTEIN 6.9 G/DL (5.7-8.2)
[2022-05-18 12:30] LABS: FREE T4 1.14 NG/DL (0.89-1.76)
[2022-05-18 12:31] LABS: THYROID STIMULATING HORMONE 1.315 uIU/ML (0.55-4.78)
[2022-05-18 14:22] LABS: HEMOGLOBIN A1c 7.1 % (4.0-6.0)
== END ==
LOC: M SFHCCLAY 07:53
PROVIDERS: ATTEND Nurse Practitioner Family
DX: E87.6 Hypokalemia (principal); E11.9 Type 2 diabetes mellitus without complications; I11.0 Hypertensive heart disease with heart failure

== ENCOUNTER → 2022-10-25 | Outpatient (REF) | payer OTHER ==
[~2022-10-25] MED LIST changes: +FLUT50SP17; -FLUTISP; +MONT-5 PO; -SING10TA32 PO
[2022-10-25 11:26] LABS: BLOOD UREA NITROGEN 19 MG/DL (9-23); CALCIUM LEVEL 9.3 MG/DL (8.5-10.1); CARBON DIOXIDE LEVEL 32 MMOL/L (20-31); CHLORIDE LEVEL 103 MMOL/L (98-107); CREATININE FOR GFR 0.76 MG/DL (0.55-1.30); GLOMERULAR FILTRATION RATE > 60.0 (>51); GLUCOSE, FASTING 166 MG/DL (60-100); POTASSIUM SERUM 3.5 MMOL/L (3.5-5.1); SODIUM LEVEL 138 MMOL/L (136-145)
[2022-10-25 11:43] LABS: HEMOGLOBIN A1c 7.4 % (4.0-6.0)
== END ==
LOC: M SFHCCLAY 08:24
PROVIDERS: ATTEND Nurse Practitioner Family
DX: E87.6 Hypokalemia (principal); E11.9 Type 2 diabetes mellitus without complications

== ENCOUNTER → 2022-11-05 | Outpatient (CLI) | payer BC, OTHER | LOC: M CLY 15:21 | PROVIDERS: ATTEND Nurse Practitioner Family | DX: M25.551 Pain in right hip (principal) ==

== ENCOUNTER → 2022-11-26 | Outpatient (CLI) | payer BC, OTHER ==
[2022-11-26 17:34] LABS: BASO # 0.1 10^3/uL (0.0-0.2); BASO % 1.6 % (0.0-1.0); HEMATOCRIT 44.5 % (36.0-47.0); LYMPH # 3.3 10^3/uL (1.5-5.0); LYMPH % 36.2 % (24.0-44.0); MEAN CORPUSCULAR HGB CONC 33.7 g/dl (32.0-36.5); MEAN CORPUSCULAR VOLUME 83.2 fl (80.0-96.0); MONO # 0.6 10^3/uL (0.0-0.8); MONO % 7.1 % (2.0-8.0); NEUTROPHILS # 4.9 10^3/uL (1.5-8.5); NEUTROPHILS % 54.9 % (36.0-66.0); PLATELET COUNT, AUTOMATED 297 10^3/uL (150-450); RED BLOOD COUNT 5.35 10^6/uL (4.00-5.40)
[2022-11-26 18:05] LABS: RHEUMATOID FACTOR QUANT < 3.5 IU/ML (<14)
[2022-11-26 18:09] LABS: ERYTHROCYTE SEDIMENTATION RATE 32 mm/hr (0-30)
[2022-11-29 15:08] LABS: ANTINUCLEAR ANTIBODIES DIRECT Negative (Negative)
== END ==
LOC: M PLALAB 13:27
PROVIDERS: ATTEND Orthopaedic Surgery
DX: M16.0 Bilateral primary osteoarthritis of hip (principal)

== ENCOUNTER → 2023-01-07 | Outpatient (CLI) | payer BC, OTHER ==
[~2023-01-07] MED LIST changes: +ISOVUE-300 61% 100ML VIAL As Ordered ONE; +LIDOCAINE 1% MDV 20ML VIAL As Ordered ONE; +PROHANCE 279.3MG/ML 5ML VIAL As Ordered ONE
== END ==
LOC: M RAD 06:47
PROVIDERS: ATTEND Orthopaedic Surgery
DX: M25.551 Pain in right hip (principal); M70.71 Other bursitis of hip, right hip
CPT/HCPCS: 27093; 73723; 77002; A9576; Q9967

== ENCOUNTER → 2023-03-14 | Outpatient (REF) | payer OTHER ==
[~2023-03-14] MED LIST changes: -ISOVUE-300 61% 100ML VIAL As Ordered ONE; -LIDOCAINE 1% MDV 20ML VIAL As Ordered ONE; -PROHANCE 279.3MG/ML 5ML VIAL As Ordered ONE
[2023-03-14 18:36] LABS: HEMOGLOBIN A1c 6.7 % (4.0-6.0)
[2023-03-14 18:49] LABS: ALKALINE PHOSPHATASE 83 U/L (46-116); ALT/SGPT 24 U/L (7.0-40); AST/SGOT 19 U/L (<34); BILIRUBIN,TOTAL 0.9 MG/DL (0.3-1.2); BLOOD UREA NITROGEN 17 MG/DL (9-23); CALCIUM LEVEL 9.6 MG/DL (8.5-10.1); CARBON DIOXIDE LEVEL 30 MMOL/L (20-31); CHLORIDE LEVEL 102 MMOL/L (98-107); CHOLESTEROL LEVEL 152 MG/DL (<200); CHOLESTEROL RISK RATIO 2.67 (<5); CREATININE FOR GFR 0.75 MG/DL (0.55-1.30); GLOMERULAR FILTRATION RATE > 60.0 (>51); GLUCOSE, FASTING 133 MG/DL (60-100); HDL CHOLESTEROL 56.9 MG/DL (>40); LDL CHOLESTEROL 76.5 MG/DL (<100); NON-HDL-C 95.1 MG/DL; POTASSIUM SERUM 4.4 MMOL/L (3.5-5.1); SODIUM LEVEL 139 MMOL/L (136-145); TOTAL PROTEIN 7.3 G/DL (5.7-8.2); TRIGLYCERIDES LEVEL 93 MG/DL (<150)
== END ==
LOC: M SFHCCLAY 10:14
PROVIDERS: ATTEND Nurse Practitioner Family
DX: E11.9 Type 2 diabetes mellitus without complications (principal); J45.40 Moderate persistent asthma, uncomplicated; I10 Essential (primary) hypertension

== ENCOUNTER → 2023-07-01 | Outpatient (CLI) | payer BC, OTHER ==
[~2023-07-01] MED LIST changes: -FLUT50SP17; +FLUTISP
[2023-07-01 14:14] LABS: BASO # 0.1 10^3/uL (0.0-0.2); BASO % 1.1 % (0.0-1.0); HEMOGLOBIN 15.5 g/dl (12.0-15.5); LYMPH # 3.4 10^3/uL (1.5-5.0); LYMPH % 36.2 % (24.0-44.0); MEAN CORPUSCULAR HEMOGLOBIN 27.5 pg (27.0-33.0); MEAN CORPUSCULAR HGB CONC 33.7 g/dl (32.0-36.5); MEAN CORPUSCULAR VOLUME 81.7 fl (80.0-96.0); MONO # 0.6 10^3/uL (0.0-0.8); MONO % 6.1 % (2.0-8.0); NEUTROPHILS # 5.3 10^3/uL (1.5-8.5); NEUTROPHILS % 56.4 % (36.0-66.0); PLATELET COUNT, AUTOMATED 344 10^3/uL (150-450); RED BLOOD COUNT 5.63 10^6/uL (4.00-5.40); WHITE BLOOD COUNT 9.3 10^3/uL (4.0-10.0)
== END ==
LOC: M PLALAB 11:22
PROVIDERS: ATTEND Allergy & Immunology Allergy
DX: J45.50 Severe persistent asthma, uncomplicated (principal)

== ENCOUNTER → 2024-01-04 | Outpatient (REF) | payer BC ==
[2024-01-04 19:07] LABS: HEMOGLOBIN A1c 8.2 % (4.0-6.0)
[2024-01-04 19:11] LABS: ALBUMIN 3.9 G/DL (3.2-5.2); ALKALINE PHOSPHATASE 90 U/L (46-116); ALT/SGPT 30 U/L (7.0-40); AST/SGOT 18 U/L (<34); BILIRUBIN,TOTAL 1.2 MG/DL (0.3-1.2); BLOOD UREA NITROGEN 17 MG/DL (9-23); CALCIUM LEVEL 9.3 MG/DL (8.5-10.1); CARBON DIOXIDE LEVEL 30 MMOL/L (20-31); CHLORIDE LEVEL 99 MMOL/L (98-107); CHOLESTEROL LEVEL 148 MG/DL (<200); CHOLESTEROL RISK RATIO 2.67 (<5); CREATININE FOR GFR 0.74 MG/DL (0.55-1.30); GLOMERULAR FILTRATION RATE > 60.0 (>51); GLUCOSE, FASTING 201 MG/DL (60-100); HDL CHOLESTEROL 55.3 MG/DL (>40); LDL CHOLESTEROL 74.3 MG/DL (<100); NON-HDL-C 92.7 MG/DL; POTASSIUM SERUM 3.9 MMOL/L (3.5-5.1); SODIUM LEVEL 136 MMOL/L (136-145); TRIGLYCERIDES LEVEL 92 MG/DL (<150)
[2024-01-04 19:14] LABS: THYROID STIMULATING HORMONE 1.472 uIU/ML (0.55-4.78)
[2024-01-04 19:15] LABS: FREE T4 1.04 NG/DL (0.89-1.76)
== END ==
LOC: M SFHCCLAY 09:36
PROVIDERS: ATTEND Nurse Practitioner Family
DX: E87.6 Hypokalemia (principal); I11.9 Hypertensive heart disease without heart failure; E11.9 Type 2 diabetes mellitus without complications

== ENCOUNTER → 2024-01-20 | Outpatient (CLI) | payer BC | LOC: M WHC 11:08 | PROVIDERS: ATTEND Nurse Practitioner Family | DX: Z12.31 Encounter for screening mammogram for malignant neoplasm of breast (principal); R92.313 Mammographic fatty tissue density, bilateral breasts ==

== ENCOUNTER → 2024-07-04 | Outpatient (REF) | payer BC ==
[2024-07-04 17:47] LABS: ALBUMIN 3.9 G/DL (3.2-5.2); ALKALINE PHOSPHATASE 87 U/L (35-104); ALT/SGPT 30 U/L (7.0-40); AST/SGOT 21 U/L (<34); BILIRUBIN,TOTAL 1.1 MG/DL (0.3-1.2); BLOOD UREA NITROGEN 14 MG/DL (9-23); CALCIUM LEVEL 9.7 MG/DL (8.5-10.1); CARBON DIOXIDE LEVEL 31 MMOL/L (20-31); CHLORIDE LEVEL 102 MMOL/L (98-107); CHOLESTEROL LEVEL 151 MG/DL (<200); CHOLESTEROL RISK RATIO 2.58 (<5); CREATININE FOR GFR 0.73 MG/DL (0.55-1.30); GLOMERULAR FILTRATION RATE > 60.0 (>51); GLUCOSE, FASTING 159 MG/DL (60-100); HDL CHOLESTEROL 58.4 MG/DL (>40); LDL CHOLESTEROL 76.6 MG/DL (<100); NON-HDL-C 92.6 MG/DL; POTASSIUM SERUM 3.7 MMOL/L (3.5-5.1); SODIUM LEVEL 141 MMOL/L (136-145); TOTAL PROTEIN 7.3 G/DL (5.7-8.2); TRIGLYCERIDES LEVEL 80 MG/DL (<150)
[2024-07-04 18:07] LABS: HEMOGLOBIN A1c 7.5 % (4.0-6.0)
== END ==
LOC: M SFHCCLAY 09:48
PROVIDERS: ATTEND Nurse Practitioner Family
DX: E11.9 Type 2 diabetes mellitus without complications (principal); J45.40 Moderate persistent asthma, uncomplicated; I10 Essential (primary) hypertension

== ENCOUNTER → 2024-07-10 | Outpatient (REF) | payer BC ==
[2024-07-10 17:30] LABS: BASO # 0.2 10^3/uL (0.0-0.2); HEMATOCRIT 45.1 % (36.0-47.0); LYMPH % 37.7 % (24.0-44.0); MEAN CORPUSCULAR HEMOGLOBIN 27.2 pg (27.0-33.0); MEAN CORPUSCULAR HGB CONC 33.3 g/dl (32.0-36.5); MEAN CORPUSCULAR VOLUME 81.7 fl (80.0-96.0); MONO # 0.6 10^3/uL (0.0-0.8); MONO % 7.2 % (2.0-8.0); NEUTROPHILS # 4.3 10^3/uL (1.5-8.5); PLATELET COUNT, AUTOMATED 306 10^3/uL (150-450); RED BLOOD COUNT 5.52 10^6/uL (4.00-5.40)
== END ==
LOC: M SFHCCLAY 11:17
PROVIDERS: ATTEND Nurse Practitioner Family
DX: J45.40 Moderate persistent asthma, uncomplicated (principal)

== ENCOUNTER → 2025-01-07 | Outpatient (REF) | payer BC ==
[2025-01-07 18:30] LABS: ALT/SGPT 30 U/L (7.0-40); AST/SGOT 26 U/L (<34); CALCIUM LEVEL 9.6 MG/DL (8.5-10.1); CARBON DIOXIDE LEVEL 32 MMOL/L (20-31); CHLORIDE LEVEL 100 MMOL/L (98-107); CREATININE FOR GFR 0.73 MG/DL (0.55-1.30); GLOMERULAR FILTRATION RATE > 90.0 (>51); POTASSIUM SERUM 3.8 MMOL/L (3.5-5.1); SODIUM LEVEL 143 MMOL/L (136-145)
== END ==
LOC: M SFHCCLAY 10:39
PROVIDERS: ATTEND Nurse Practitioner Family
DX: E11.9 Type 2 diabetes mellitus without complications (principal); J45.40 Moderate persistent asthma, uncomplicated; I10 Essential (primary) hypertension

== ENCOUNTER → 2025-01-10 | Outpatient (REF) | payer BC ==
[2025-01-10 18:14] LABS: BASO # 0.1 10^3/uL (0.0-0.2); BASO % 1.1 % (0.0-1.0); EOS # 0.0 10^3/uL (0.0-0.5); EOS % 0.0 % (0.0-3.0); LYMPH # 2.6 10^3/uL (1.5-5.0); LYMPH % 32.2 % (24.0-44.0); MONO # 0.5 10^3/uL (0.0-0.8); MONO % 6.6 % (2.0-8.0); NEUTROPHILS # 4.8 10^3/uL (1.5-8.5); NEUTROPHILS % 59.9 % (36.0-66.0); PLATELET COUNT, AUTOMATED 300 10^3/uL (150-450)
[2025-01-10 18:43] LABS: CHOLESTEROL LEVEL 145.0 MG/DL (<200); CHOLESTEROL RISK RATIO 2.41 (<5); LDL CHOLESTEROL 69.3 MG/DL (<100); NON-HDL-C 84.9 MG/DL; TRIGLYCERIDES LEVEL 78.0 MG/DL (<150)
[2025-01-10 19:02] LABS: ESTIMATED AVERAGE GLUCOSE 183.0 MG/DL (60-110)
== END ==
LOC: M SFHCCLAY 10:40
PROVIDERS: ATTEND Nurse Practitioner Family
DX: E11.9 Type 2 diabetes mellitus without complications (principal); J45.40 Moderate persistent asthma, uncomplicated; I10 Essential (primary) hypertension

== ENCOUNTER → 2025-02-26 | Outpatient (CLI) | payer BC | LOC: M WHC 10:34 | PROVIDERS: ATTEND Nurse Practitioner Family | DX: Z12.31 Encounter for screening mammogram for malignant neoplasm of breast (principal) ==

== ENCOUNTER → 2025-05-08 | Outpatient (REF) | payer BC ==
[2025-05-08 17:37] LABS: ALT/SGPT 19 U/L (7.0-40); AST/SGOT 19 U/L (<34); BASO # 0.1 10^3/uL (0.0-0.2); BASO % 0.8 % (0.0-1.0); CALCIUM LEVEL 9.3 MG/DL (8.3-10.6); CARBON DIOXIDE LEVEL 32 MMOL/L (20-31); CHLORIDE LEVEL 99 MMOL/L (98-107); CHOLESTEROL LEVEL 152 MG/DL (<200); CHOLESTEROL RISK RATIO 2.79 (<5); CREATININE FOR GFR 0.65 MG/DL (0.55-1.30); EOS # 0.0 10^3/uL (0.0-0.5); EOS % 0.2 % (0.0-3.0); GLOMERULAR FILTRATION RATE > 90.0 (>45); LDL CHOLESTEROL 83.4 MG/DL (<100); LYMPH # 2.4 10^3/uL (1.5-5.0); LYMPH % 28.6 % (24.0-44.0); MONO # 0.6 10^3/uL (0.0-0.8); MONO % 7.5 % (2.0-8.0); NEUTROPHILS # 5.2 10^3/uL (1.5-8.5); NEUTROPHILS % 62.7 % (36.0-66.0); NON-HDL-C 97.6 MG/DL; PLATELET COUNT, AUTOMATED 344 10^3/uL (150-450); POTASSIUM SERUM 3.7 MMOL/L (3.5-5.1); SODIUM LEVEL 142 MMOL/L (136-145); TRIGLYCERIDES LEVEL 71 MG/DL (<150)
[2025-05-08 18:11] LABS: ESTIMATED AVERAGE GLUCOSE 146.0 MG/DL (60-110)
== END ==
LOC: M SFHCCLAY 10:42
PROVIDERS: ATTEND Nurse Practitioner Family
DX: I10 Essential (primary) hypertension (principal); J45.40 Moderate persistent asthma, uncomplicated; E11.9 Type 2 diabetes mellitus without complications